=== PATIENT | male | born 1975 | race Caucasian/White ===

== ENCOUNTER 2016-10-21 11:57 | Inpatient (IN) | payer OTHER ==
[~2016-10-21] VITALS: Ht 188 cm; Wt 83.9 kg
--- NOTE | ~2016-10-21 | EKG ---
[address] [place] [address] ELECTROCARDIOGRAM REPORT Name: MATTEO MURILLO Room #: 240-P [facility] M.R.#: [id number] Admission: 10/21/16 Attend Phys: Jessica Yung Discharge: Date of : 77 Report #: [id number] THIS REPORT FOR: //name// [facility] ED Test Date: 2016-10-21 Test Time: 12:05:15 Pat Name: MATTEO MURILLO Department: Room: 240 Gender: M Cardiovascular Tech: KAYLIE : 1975 Requested By: Melvin Pitt Order Number: [id number] MD: Juan C Giron Measurements Intervals Cecil Rate: 134 P: 83 NV: 147 QRS: 78 QRSD: 87 T: -85 QT: 355 QTc: 530 Interpretive Statements Sinus tachycardia Probable left ventricular hypertrophy Repol abnrm Prolonged QT interval No previous ECG available for comparison Electronically Signed On 10-23-2016 13:13:36 CDT by Juan C Giron [email or web address] <ELECTRONICALLY SIGNED> By: Juan C Giron MD, [facility] 10/23/16 1313 1205 1205 Juan C Giron MD, FACC /EPI
--- NOTE | ~2016-10-21 | 2DMMODE ---
[facility] [address] [place] [address] 2 D/M-MODE ECHOCARDIOGRAM Name: MATTEO MURILLO Room #: 240-P [facility] .R.#: [id number] Admission: 10/21/16 Attend Phys: Jessica Dawkins Discharge: Date of : 77 Date of Service: 10/22/16 [facility] Report #: [id number] THIS REPORT FOR: //name// APPROVED REPORT Study performed: 10/22/2016 13:00:55 EXAM: Comprehensive 2D, Doppler, and color-flow Echocardiogram Patient Location: Bedside Room #: [id number] Status: on-call Other Information Study Quality: Good Indications Syncope 2D Dimensions LVEF(%): 41.27 (>50%) IVSd: 12.66 (7-11mm) LVOT Diam: 22.00 (18-24mm) LVDd: 50.71 mm PWd: 13.45 (7-11mm) Ascending Ao: 26.69 (22-36mm) LVDs: 40.42 (25-40mm) Aortic Root: 33.70 mm Swan's LVEF: 41.27 % Volumes Left Atrial Volume (Systole) Single Plane 4CH: 36.61 mL Single Plane 2CH: 25.12 mL LA ESV Index: 17.00 mL/m2 Aortic Valve AoV Peak Arturo.: 1.08 m/s AO Peak Gr.: 5.97 mmHg LVOT Max P.32 mmHg LVOT Max V: 0.91 m/s RODNEY Vmax: 3.32 cm2 Mitral Valve E/A Ratio: 1.1 MV Decel. Time: 256.76 ms MV E Max Arturo.: 0.70 m/s MV A Arturo.: 0.61 m/s MV PHT: 74.46 ms IVRT: 64.59 ms [facility] [place] [address] 2 D/M-MODE ECHOCARDIOGRAM Name: MATTEO MURILLO Room #: 240-[facility] M.R.#: [id number] Admission: 10/21/16 Attend Phys: Jessica Dawkins Discharge: Date of : 77 Date of Service: 10/22/162003 Report #: [id number] Pulmonary Valve PV Peak Arturo.: 1.00 m/s PV Peak Gr.: 3.97 mmHg Pulmonary Vein P Vein S: 0.64 m/s P Vein A: 0.24 m/s P Vein D: 0.34 m/s P Vein A Dur.: 133.8 msec P Vein S/D Ratio: 1.88 Tricuspid Valve RAP Estimate: 5.00 mmHg Left Ventricle The left ventricle is normal size. There is normal LV segmental wall motion. Mild concentric left ventricular hypertrophy. Left ventricular systolic function is normal. The left ventricular ejection fraction is within the normal range. The left ventricular diastolic function is normal. Right Ventricle The right ventricle is normal size. The right ventricular systolic function is normal. Atria The left atrium size is normal. The right atrium size is normal. Aortic Valve The aortic valve is normal in structure. No aortic regurgitation is present. There is no aortic valvular stenosis. Mitral Valve The mitral valve is normal in structure. Trace mitral regurgitation. No evidence of mitral valve stenosis. Tricuspid Valve The tricuspid valve is normal in structure. There is no tricuspid valve regurgitation noted. Pulmonic Valve The pulmonary valve is normal in structure. There is no pulmonic valvular regurgitation. Great Vessels The aortic root is normal in size. IVC is normal in size and collapses with >50% inspiration [facility] [address] [place] [address] 2 D/M-MODE ECHOCARDIOGRAM Name: MATTEO MURILLO Room #: 240-P [facility] M.R.#: [id number] Admission: 10/21/16 Attend Phys: Jessica Dawkins Discharge: Date of : 77 Date of Service: 10/22/162003 Report #: [id number] Pericardium There is no pericardial effusion. <Conclusion> The left ventricle is normal size. Mild concentric left ventricular hypertrophy. Left ventricular systolic function is normal. The left ventricular ejection fraction is within the normal range. The left ventricular diastolic function is normal. The right ventricle is normal size. The left atrium size is normal. The right atrium size is normal. The aortic valve is normal in structure. Trace mitral regurgitation. There is no tricuspid valve regurgitation noted. There is no pericardial effusion. <ELECTRONICALLY SIGNED> By: Josh Garcia MD, FACC 10/22/162003 03 03 Josh Garcia MD, FACC /INF
[2016-10-21 11:59] VITALS: BP 140/95
[2016-10-21 12:36] LABS: WBC 6.3 thou/uL (4.0-11.0)
[2016-10-21 12:36] LABS: URINE BLOOD 2+ (Negative); URINE COLOR YELLOW; URINE GLUCOSE-RANDOM* TRACE (Negative); URINE KETONES TRACE (Negative); URINE LEUKOCYTES-REFLEX NEGATIVE (Negative); URINE PROTEIN (DIPSTICK) 3+ (Negative); URINE SPECIFIC GRAVITY 1.015 (1.003-1.035)
[2016-10-21 12:37] LABS: HEMATOCRIT 43.6 % (42.0-52.0); HEMOGLOBIN 15.2 gm/dL (14.0-18.0); MCH 33.9 pg (26.0-34.0); MCHC 34.9 g/dL (28.0-37.0); MCV 97.4 fL (80.0-100.0); RBC 4.48 mil/uL (4.50-6.00); RDW 13.7 % (10.5-14.5)
[2016-10-21 12:40] LABS: MANUAL DIFF YES
[2016-10-21 12:42] LABS: CALCIUM 9.3 mg/dL (8.5-10.1); CREATININE 2.1 mg/dL (0.7-1.3)
[2016-10-21 12:42] LABS: ICTOTEST (BILI CONFIRMATORY) Negative (Negative); URINE BILIRUBIN NEGATIVE (Negative)
[2016-10-21 12:43] LABS: POTASSIUM 2.9 mmol/L (3.5-5.1)
[2016-10-21 12:47] LABS: AMP/METHAMP Negative (Negative); BARBITURATES Negative (Negative); BENZODIAZEPINES Negative (Negative); COCAINE Negative (Negative); HYALINE CASTS 0-3 Few /LPF (None Seen); METHADONE Negative (Negative); OPIATES Negative (Negative); PCP Negative (Negative); SQUAMOUS 0-3 Few /LPF (0-3); THC Negative (Negative)
[2016-10-21 12:48] LABS: FINE GRANULAR CASTS 4-10 Moderate /LPF (None Seen)
[2016-10-21 12:49] LABS: CRYSTALS None Seen /LPF (None Seen); URINE WBC-REFLEX 6-15 Few /HPF (0-5)
[2016-10-21 13:19] LABS: ABSOLUTE NEUTROPHILS 5.2 thou/uL (1.4-8.2); TOTAL CELL COUNT 100
[2016-10-21 13:23] LABS: PLATELET COUNT 36 thou/uL (150-400)
[2016-10-21 17:35] VITALS: BP 142/83
[2016-10-21 18:12] VITALS: BP 142/80
[2016-10-22] VITALS (15 sets, daily range): BP systolic 121–161; BP diastolic 83–107
[2016-10-22 01:29] LABS: CALCIUM 7.8 mg/dL (8.5-10.1); POTASSIUM 3.1 mmol/L (3.5-5.1)
[2016-10-22 01:36] LABS: ALBUMIN 3.5 g/dL (3.4-5.0); MAGNESIUM 1.1 mg/dL (1.8-2.4); TOTAL BILIRUBIN 0.7 mg/dL (<0.1-1.0); TOTAL PROTEIN 7.3 g/dL (6.4-8.2); TROPONIN-I 0.07 ng/mL (<0.04-0.07)
[2016-10-22 01:42] LABS: CREATININE 0.9 mg/dL (0.7-1.3)
[2016-10-22 10:45] LABS: FOLIC ACID 18.2 ng/mL (8.6-58.9)
[2016-10-22 17:09] LABS: FREE T4 1.13 ng/dL (0.82-1.77)
[2016-10-23] VITALS (45 sets, daily range): BP systolic 118–174; BP diastolic 78–126
[2016-10-23 06:40] LABS: ALBUMIN 3.2 g/dL (3.4-5.0); CALCIUM 8.2 mg/dL (8.5-10.1); CREATININE 0.7 mg/dL (0.7-1.3); POTASSIUM 3.7 mmol/L (3.5-5.1); TOTAL BILIRUBIN 0.8 mg/dL (<0.1-1.0); TOTAL PROTEIN 7.2 g/dL (6.4-8.2)
[2016-10-24] VITALS (7 sets, daily range): BP systolic 141–157; BP diastolic 90–110
[2016-10-24 05:28] LABS: CREATININE 0.7 mg/dL (0.7-1.3); MAGNESIUM 1.2 mg/dL (1.8-2.4); PHOSPHORUS 4.7 mg/dL (2.5-4.9); POTASSIUM 3.7 mmol/L (3.5-5.1)
[2016-10-24] MEDS ORDERED: NORVASC5 MG PO (17:36)
[2016-10-24] MEDS ORDERED: TOPROL XL50 MG PO (17:37)
== END 2016-10-24 16:00 | disposition home or self-care (01) | DRG 641 ==
LOC: ER 11:57 → EROBS 16:25 → ICU 17:10 → 4S 17:45 → 4W 10-22 10:11 → ICU 10-22 15:25
PROVIDERS: Hospitalist; Physician Assistant
DX: E86.0 Dehydration (principal); M62.82 Rhabdomyolysis; F10.239 Alcohol dependence with withdrawal, unspecified; N17.9 Acute kidney failure, unspecified; T67.5XXA Heat exhaustion, unspecified, initial encounter; E87.2 Acidosis; E87.1 Hypo-osmolality and hyponatremia; I10 Essential (primary) hypertension; X58.XXXA Exposure to other specified factors, initial encounter; R00.0 Tachycardia, unspecified; E87.6 Hypokalemia; R94.31 Abnormal electrocardiogram [ECG] [EKG]; F17.210 Nicotine dependence, cigarettes, uncomplicated; Y90.0 Blood alcohol level of less than 20 mg/100 ml; Y93.89 Activity, other specified; Y92.89 Other specified places as the place of occurrence of the external cause; Y99.8 Other external cause status; Z79.899 Other long term (current) drug therapy; Z71.6 Tobacco abuse counseling
CPT/HCPCS: 10078; 10102